=== PATIENT | female | born 1975 | race Caucasian/White ===

== ENCOUNTER 2025-02-07 11:30 | Emergency (ER) | payer BC, OTHER ==
[2025-02-07 11:50] VITALS: BP 174/95; PULSE 80; RESP 18; TEMP 98; BMI 30.5
[2025-02-07] MEDS ORDERED: DIPHTH,PERTUSS(ACELL),TET 0.5 ML DISP.SYRIN IM ONE (12:35)
[2025-02-07] MEDS: DIPHTH,PERTUSS(ACELL),TET 0.5 ML DISP.SYRIN IM ONE (12:44)
== END 2025-02-07 13:55 | disposition home or self-care (01) ==
LOC: JER 11:30 → JERFT 11:30
PROC: 3E0234Z Introduction of Serum, Toxoid and Vaccine into Muscle, Percutaneous Approach (ICD-10-PCS; principal; 2025-02-07)
DX: S61.211A Laceration without foreign body of left index finger without damage to nail, initial encounter (principal); Z23 Encounter for immunization; W20.8XXA Other cause of strike by thrown, projected or falling object, initial encounter
CPT/HCPCS: 73140-TC-LT-FY; 90715; 99284-25

== ENCOUNTER 2025-02-19 13:19 | Emergency (ER) | payer OTHER ==
[2025-02-19 13:28] VITALS: BP 123/70; PULSE 70; RESP 18; TEMP 97.7; BMI 29.8
== END 2025-02-19 14:08 | disposition home or self-care (01) ==
LOC: JERFT 13:19
DX: Z48.02 Encounter for removal of sutures (principal)
CPT/HCPCS: 99281-25